=== PATIENT | male | born 1955 | race Caucasian/White ===

== ENCOUNTER 2017-07-03 12:08 | Emergency (ER) | payer SELFPAY ==
[2017-07-03] MEDS ORDERED: ASPIRIN 81 MG CHEW TAB ONE (12:13)
[2017-07-03] MEDS ORDERED: ASPIRIN 81 MG CHEW TAB PO ONE (12:15)
[2017-07-03] MEDS ORDERED: NITROGLYCERIN 0.4 MG TAB.SUBL SL ONE ×2 (12:15→12:35)
[2017-07-03] MEDS ORDERED: METOPROLOL TARTRATE 5 MG/5 ML VIAL IVP ONE ×3 (12:16→13:18)
[2017-07-03 12:21] LABS: BASOPHILS % 0.6 (0.0-1.5); EOSINOPHILS % 2.5 % (0.0-6.8); MEAN CORPUSCULAR HEMOGLOBIN 30.7 pg (28.0-34.0); MEAN CORPUSCULAR VOLUME 87.1 fl (80.0-100.0); MONOCYTES % 5.9 % (0.0-11.0); NEUTROPHILS # 7.6 # k/uL (1.4-7.7)
[2017-07-03] MEDS ORDERED: 0.9 % SODIUM CHLORIDE 1,000 ML IV ONE ×3 (12:21→13:27)
[2017-07-03] MEDS ORDERED: MORPHINE SULFATE 2 MG/ML PREFILLED SYR ONE ×2 (12:25→12:31)
[2017-07-03] MEDS ORDERED: MORPHINE SULFATE 4 MG/ML PREFILLED SYR IVP ONE ×2 (12:25→14:08)
--- NOTE | 2017-07-03 12:30 | ED Physician Documentation ---
Chest Pain - HISTORIAN Historian: patient - HPI Stated Complaint: Chest Pain Chief Complaint: Chest Pain Onset: minutes Timing: sudden onset Duration: constant Last known Well Date: 07/03/17 Last Known Well Time: 11:45 Last known Well Code/Unknown Code: Known Context: other (eating lunch) Severity: severe (8-9/10) Quality: pressure, tightness, stabbing Chest Pain Radiation: jaw, arms Chest Pain Signs/Symptoms: diaphoresis. denies: nausea, vomiting Worsened By: nothing Relieved By: nothing Further Comments: yes (61 year old male patient presents with complaints of crushing chest pain with radiation to left arm. Patient reports pain started while he was eating lunch 20 minutes ago. States pain is similar to last MT. Patient reports having 4 stents placed in RCA in March 2017, by Dr Robertson.) - ROS CONST: none MS/LYMPH: none GI/: none EYES/ENT: none SKIN/ENDO: none NEURO/PSYCH: none - PAST HX MT risk factors: hypertension, hyperlipidemia, cardiac disease, AMI Surgeries/Procedures: cardiac cath, other (bilateral shoulders) Allergies/Adverse Reactions: Allergies Allergy/AdvReac Type Severity Reaction Status Date / Time No Known Allergies Allergy Unverified 07/03/17 13:39 Home Medications: Ambulatory Orders Medication Instructions Recorded Atorvastatin Calcium 40 mg PO HS 07/03/17 Clopidogrel Bisulfate [Clopidogrel] 75 mg PO DAILY 07/03/17 Losartan/Hydrochlorothiazide 1 each PO DAILY 07/03/17 [Hyzaar 100-25 Tablet] - SOCIAL HX Smoking History: non-smoker, quit greater than 1 year Alcohol Use: occasionally - FAMILY HX Family HX: CAD over 55 - VITAL SIGNS Vital Signs: Vital Signs Temp Pulse Resp BP Pulse Ox 96 F L 80 28 H 153/97 96 07/03/17 12:10 07/03/17 12:10 07/03/17 12:10 07/03/17 12:10 07/03/17 12:10 - REVIEWED ASSESSMENTS Nursing Assessment Reviewed: Yes Vitals Reviewed: Yes Progress - Progress Progress: EKG - NSR, with CP 8-9/10, radiating down left arm. SL Nitro given, patient reports he did not take his AM antihypertension medications. Metoprolol IV given. No change in chest -2nd nitro given. 1245 Patient states pain is waxing and waning 6/10 at least and back up to 10/10 ; nitro drip started. Trop negative, ddimr negative. Will progress with CT chest to rule out aortic dissection. 1300 Patient unable to lie flat for CT, continues to C/O midsternal CP 8/10, ativan 2mg IV given. Able to complete study after dose of ativan. SBP up to 166/82 - titrating up nitro drip, additional metoprolol given 1330 CT results back, repeat EKG. 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 1405 Patient c/o severe arm and chest pain; family requesting "sedative". Additional Morphine given for chest pain. [address] Guzman at [place], nitroglycerin at 20mcg/min. VS stable. Patient remains anxious with complaint of CP. Fentanyl and ativan given prior to transfer. 1430 Patient calmer, more cooperative at discharge. Rates pain 5/10, pink, warm and dry. - EKG/XRAY/CT EKG: NSR (SR, no acute changes, rate 76; CP 8-9/10) - Additional EKG/XRAY/Consults EKG #2: rhythm (SR, rate 76, CP 6/10; unchanged from 1305 EKG) ED Results Lab/Radiology - Radiology Radiology Impressions: Examination: CT chest History: Chest discomfort. Possible dissection. Comparison exams: None available Technique: CT chest with contrast protocol Findings: Thoracic aorta demonstrates mild peripheral atherosclerotic disease and mural thickening. No evidence for dissection. Aortic root measures 3.8 cm. Aortic arch measures 3.0 cm. Proximal descending thoracic aorta measures 3.3 cm. Mid descending thoracic aorta measures 3.0 cm. Aorta at the diaphragm measures 2.8 cm. Lungs demonstrate dependent atelectasis. No evidence for posterior pleural thickening or effusion. Right lower lung peripheral granuloma. Mild lung base vascular fullness/congestion. Anterior mediastinum and ritesh are without gross mass or pathologic adenopathy. Cardiac silhouette not enlarged. No pericardial effusion. Coronary vascular calcifications. Lower neck structures and upper abdominal organs are without gross abnormality. Degenerative changes of the osseous structures. Small hiatal hernia. Impression: No evidence for thoracic aortic dissection. No acute parenchymal process. No effusion. Mild lung base vascular congestion. Small hiatal hernia. - Orders Orders: ED Orders Category Date Time Status Continuous EKG monitoring Q30M Care 07/03/17 12:13 Active Continuous Pulse Oximetry Q30M Care 07/03/17 12:[address] IV Lock 1T Care 07/03/17 12:13 Active CHEST 1 VIEW [RAD] Stat Exams 07/03/17 12:15 Ordered CBC/PLATELET/DIFF Stat Lab 07/03/17 12:15 Received CKMB Stat Lab 07/03/17 12:15 Received CMP Stat Lab 07/03/17 12:15 Received CREATINE KINASE Stat Lab 07/03/17 12:15 Received D DIMER Stat Lab 07/03/17 12:15 Received TROPONIN I (cTnI) Stat Lab 07/03/17 12:15 Received 0.9 % Sodium Chloride [Normal Saline] 1,000 ml Med 07/03/17 12:21 Discontinued IV .STK-MED Aspirin Med 07/03/17 12:13 Discontinued 324 mg .ROUTE .STK-MED ONE Aspirin Med 07/03/17 12:15 Discontinued 324 mg PO NOW ONE Metoprolol Tartrate [Toprol] Med 07/03/17 12:16 Discontinued 5 mg IVP .STK-MED ONE Metoprolol Tartrate [Toprol] Med 07/03/17 12:18 Discontinued 5 mg IVP NOW ONE Morphine Sulfate [DepoDUR] Med 07/03/17 12:25 Discontinued 4 mg IVP NOW ONE Morphine Sulfate [DepoDur] Med 07/03/17 12:25 Discontinued 2 mg .ROUTE .STK-MED ONE Nitroglycerin [Nitroquick] Med 07/03/17 12:15 Discontinued 0.4 mg SL NOW ONE EKG WITH COMPARISON Stat Ther 07/03/17 12:13 Ordered Chest Pain Physical Exam - EXAM General Appearance: severe distress, anxious EENT: eye inspection normal, ENDY Respiratory: nml breath sounds, other (chest pain 9-10/10 on arrival, not reproducible. ). No: resp.distress CVS: reg. rate & rhythm, no murmur, no gallop, no friction rub, pulses full, pulses equal Abdomen: soft, no organomegaly, normal bowel sounds, no abdominal bruit, no distension, other (protuberant) Skin: diaphoresis, pallor Extremities: normal range of motion, no evidence of injury, no edema, other (c/ o severe left arm pain) Neuro: oriented X3, CN's nml as tested, motor nml, sensation nml, mood/affect nml Discharge Clincal Impression: Chest pain, rule out acute myocardial infarction, Anxiety Chest pain Qualifiers: Chest pain type: unspecified Qualified Code(s): R07.9 - Chest pain, unspecified Referrals: Angelo Mishra DO [STAFF PHYSICIAN] - 2 Days Condition: Stable Disposition: 02 XFER [facility] Decision to Admit: NO Decision Time: 14:30
[2017-07-03 12:36] LABS: eGFR (African) > 60; eGFR (Non-African) > 60
[2017-07-03] MEDS ORDERED: NITROGLYCERIN/D5W 50 MG/250 ML ML IV ONE ×2 (12:38→12:43)
[2017-07-03] MEDS ORDERED: LORazepam 2 MG/ML VIAL ONE (13:02)
[2017-07-03] MEDS ORDERED: LORazepam 2 MG/ML VIAL IVP ONE ×2 (13:02→14:17)
[2017-07-03] MEDS ORDERED: MAG HYDROX/AL HYDROX/SIMETH 30 ML, Lidocaine 2%Visc 15ml 20 MG, PHENobarb/HYOSCY/ATROPI... PO ONE ×3 (13:31)
--- NOTE | 2017-07-03 13:32 | Diagnostic Imaging Report ---
ELIANA HAYDEN (MARIA LUZ) - ER [facility] [address] [facility].[address] [address] Report Submission Date: Jul 03, 2017 1:29:44 PM SCALE INSTALLER Patient Study Name: CHAD DOS SANTOS Date: Jul 03, 2017 1:04:21 PM SCALE INSTALLER Modality Type: CT\SR Gender: M Description: CT CHEST W/ CONTRAST : 53 Institution: [facility] Physician: ELIANA HAYDEN) - ER Examination: CT chest History: Chest discomfort. Possible dissection. Comparison exams: None available Technique: CT chest with contrast protocol Findings: Thoracic aorta demonstrates mild peripheral atherosclerotic disease and mural thickening. No evidence for dissection. Aortic root measures 3.8 cm. Aortic arch measures 3.0 cm. Proximal descending thoracic aorta measures 3.3 cm. Mid descending thoracic aorta measures 3.0 cm. Aorta at the diaphragm measures 2.8 cm. Lungs demonstrate dependent atelectasis. No evidence for posterior pleural thickening or effusion. Right lower lung peripheral granuloma. Mild lung base vascular fullness/congestion. Anterior mediastinum and ritesh are without gross mass or pathologic adenopathy. Cardiac silhouette not enlarged. No pericardial effusion. Coronary vascular calcifications. Lower neck structures and upper abdominal organs are without gross abnormality. Degenerative changes of the osseous structures. Small hiatal hernia. Impression: No evidence for thoracic aortic dissection. No acute parenchymal process. No effusion. Mild lung base vascular congestion. Small hiatal hernia. Electronically signed on Jul 03, 2017 1:29:44 PM SCALE INSTALLER by: Garrett JORDAN
[2017-07-03] MEDS ORDERED: Lidocaine 2%Visc 15ml 20 MG/ML UDC ONE (13:33)
[2017-07-03] MEDS ORDERED: MAGNESIUM HYDROXIDE/AL HYDROX 30 ML UDC PO ONE (13:33)
[2017-07-03] MEDS ORDERED: fentaNYL CITRATE/PF 100 MCG/ 2ML AMP IVP ONE (14:16)
[2017-07-03] MEDS ORDERED: fentaNYL CITRATE/PF 100 MCG/ 2ML AMP ONE (14:17)
[2017-07-03 16:22] VITALS: BP 141/73
== END 2017-07-03 14:30 | disposition short-term general hospital (02) ==
LOC: ED 12:08
DX: R07.9 Chest pain, unspecified (principal); F41.9 Anxiety disorder, unspecified
CPT/HCPCS: 71260; 80053; 82550; 82553; 83880; 84484; 85025; 85379; 93005; A9270; J2060; J2270; J3010; J3490; J7030; 96361; 96374; 96375; 99283; Q9967; S1016

== ENCOUNTER 2018-08-06 11:41 | Day surgery (SDC) | payer OTHER ==
[~2018-08-06 11:41] MED LIST: LIDOCAINE HCL 2% PF 100MG/5ML VIAL IJ ONE; PROPOFOL 200 MG/20 ML VIAL IV ONE
--- NOTE | 2018-08-06 15:13 | GI Report ---
REFERRING PHYSICIAN: Dr. Stu Robison PSYCH SPECIALIST: Jon Apodaca MD PROCEDURE MEDICATION: Propofol as per anesthesia. INDICATIONS: This is a 62-year-old who had polyps 5 years ago and is referred for follow up. He does have significant heart disease. He has had stents. He was a cigarette smoker. He did stop in 1998. He has had 4 stents in his heart. He denies any change in his stool. A colonoscopy in 2011 had a polyp. PROCEDURE PERFORMED: Colonoscopy and polypectomy. PROCEDURE: An Olympus video colonoscope was advanced to the rectum. In the sigmoid, he has moderate severe diverticular disease. It took some maneuvering to get through that area. A redundant colon all the way to the cecum. In the cecum, the patient had a 4 mm sessile polyp removed with a cold snare. The ileocecal valve looked normal. On slow withdrawal, the cecum, ascending colon, and transverse colon had no additional intraluminal lesions noted. The descending colon and sigmoid with diverticular disease, no additional intraluminal lesions noted. Retroflexion of the rectum showed hemorrhoids. Patient tolerated the procedure well. FINDINGS: Colon polyp in the cecum. RECOMMENDATIONS: 1. Increase fiber in the diet. Metamucil or MiraLAX, whatever if needed. 2. Pending the pathology of the polyp, consider re-looking at his colon in 5 years. cc: Dr. Stu JORDAN
== END 2018-08-06 11:42 ==
LOC: OPSURG 11:41
PROVIDERS: ATTEND Internal Medicine Gastroenterology
DX: Z12.11 Encounter for screening for malignant neoplasm of colon (principal); Z86.010 Personal history of colon polyps; D12.0 Benign neoplasm of cecum; K64.8 Other hemorrhoids; K57.30 Diverticulosis of large intestine without perforation or abscess without bleeding; I51.9 Heart disease, unspecified; Z95.818 Presence of other cardiac implants and grafts
CPT/HCPCS: 45385; 88305; J2001; J2704; S1016